=== PATIENT | female | born 1970 | race Hispanic/Latino ===

== ENCOUNTER 2017-07-08 21:53 | Emergency (ER) | payer MEDICAID ==
[~2017-07-08 21:53] MED LIST: CLON1TAB23 PO; DESM10SP4 NS; HYDR200T4 PO; LEVO125T11 PO
[2017-07-08] MEDS ORDERED: SODIUM CHLORIDE 0.9% 1000ML 1,000 ML IV ONE (22:31)
[2017-07-08] MEDS ORDERED: CEFTRIAXONE SODIUM 1 GM ONE (22:32)
[2017-07-08 22:42] LABS: BASOPHILS % (AUTO) 0.9 % (0.0-5.0); EOSINOPHILS % (AUTO) 1.6 % (0.0-8.0); LYMPHOCYTES % (AUTO) 23.9 % (21.0-51.0); MEAN CORPUSCULAR HEMOGLOBIN 26.2 pg (27.0-33.0); MEAN CORPUSCULAR HGB CONC 34.9 g/dL (32.0-36.0); MEAN CORPUSCULAR VOLUME 75.2 fL (79-99); MONOCYTES % (AUTO) 14.6 % (3.0-13.0); PLATELET COUNT (AUTO) 407 K/uL (130-400); RED BLOOD CELL COUNT(AUTO) 3.59 MIL/uL (4.00-5.50); RED CELL DISTRIBUTION WIDTH 16.5 % (11.0-15.5); WHITE BLOOD COUNT (AUTO) 3.3 K/uL (4.8-10.8)
[2017-07-08 22:50] LABS: CREATININE 0.5 mg/dL (0.5-1.5); POTASSIUM 4.7 mmol/L (3.5-5.1)
[2017-07-08] MEDS ORDERED: IPRATROPIUM/ALBUTEROL SULFATE 3 ML SOLUTION IH ONE (22:54)
== END 2017-07-08 23:34 | disposition home or self-care (01) ==
LOC: EDH 21:53
DX: J10.1 Influenza due to other identified influenza virus with other respiratory manifestations (principal); M54.2 Cervicalgia; R51 Headache; I10 Essential (primary) hypertension; M19.90 Unspecified osteoarthritis, unspecified site; Z88.8 Allergy status to other drugs, medicaments and biological substances
CPT/HCPCS: 36415; 70360; 71046; 80048; 84703; 85025; 87804 ×2; 93005; 94640; 96361; 96374; 99285; J0696; J7030

== ENCOUNTER 2017-11-19 15:25 | Emergency (ER) | payer MEDICAID ==
[2017-11-19 16:21] LABS: BASOPHILS % (AUTO) 1.3 % (0.0-5.0); EOSINOPHILS % (AUTO) 0.9 % (0.0-8.0); HEMATOCRIT 29.6 % (36-48); MEAN CORPUSCULAR HEMOGLOBIN 25.4 pg (27.0-33.0); MEAN CORPUSCULAR HGB CONC 34.2 g/dL (32.0-36.0); MEAN CORPUSCULAR VOLUME 74.3 fL (79-99); MONOCYTES % (AUTO) 11.8 % (3.0-13.0); PLATELET COUNT (AUTO) 375 K/uL (130-400); RED BLOOD CELL COUNT(AUTO) 3.99 MIL/uL (4.00-5.50); RED CELL DISTRIBUTION WIDTH 21.9 % (11.0-15.5); WHITE BLOOD COUNT (AUTO) 2.6 K/uL (4.8-10.8)
[2017-11-19 16:28] LABS: CREATININE 0.6 mg/dL (0.5-1.5); POTASSIUM 3.7 mmol/L (3.5-5.1)
[2017-11-19 16:32] LABS: ALBUMIN 3.9 g/dL (3.5-5.0); BILIRUBIN,DIRECT 0.1 mg/dL (0.0-0.3); BILIRUBIN,TOTAL 0.3 mg/dL (0.2-1.0); TOTAL PROTEIN, SERUM 7.9 g/dL (6.0-8.3)
[2017-11-19] MEDS ORDERED: ONDANSETRON HCL 4 MG/2 ML VIAL ONE (16:38)
[2017-11-19] MEDS ORDERED: SODIUM CHLORIDE 0.9% 1000ML 1,000 ML IV ONE (16:38)
[2017-11-19 17:52] LABS: APPEARANCE,URINE Clear (CLEAR); BILIRUBIN,URINE Negative (NEGATIVE); COLOR,URINE Yellow (YELLOW); GLUCOSE, URINE (UA) Negative (NEGATIVE); KETONES,URINE Negative (NEGATIVE); LEUKOCYTE ESTERASE ,URINE Negative (NEGATIVE); NITRATE,URINE Negative (NEGATIVE); OCCULT BLOOD,URINE Negative (NEGATIVE); PROTEIN,URINE Negative (NEGATIVE); UROBILINOGEN,URINE 0.2 mg/dL (0.2-1.0)
[2017-11-19 18:23] LABS: AMPHET/METH SCREEN,URINE NEGATIVE (NEGATIVE); BARBITURATE SCREEN, URINE NEGATIVE (NEGATIVE); BENZODIAZEPINES SCREEN,URINE NEGATIVE (NEGATIVE); CANNABINOID SCREEN,URINE POSITIVE (NEGATIVE); COCAINE SCREEN,URINE NEGATIVE (NEGATIVE); OPIATE SCREEN,URINE NEGATIVE (NEGATIVE); PHENCYCLIDINE SCREEN,URINE NEGATIVE (NEGATIVE)
[2017-11-19 18:50] LABS: BAND NEUTROPHILS % (MANUAL) 7 % (0-2); BASOPHILS % (MANUAL) 2 % (0-2); EOSINOPHILS % (MANUAL) 2 % (1-6); LYMPHOCYTES % (MANUAL) 25 % (22-44); MONOCYTES % (MANUAL) 6 % (2-9); SEGMENTED NEUTROPHILS % 58 % (40-70)
[2017-11-19 18:52] LABS: MAN.DIFF COMMENT-IMPRESSION MANUAL DIFFERENTIAL
[2017-11-19 18:54] LABS: PLATELET MORPHOLOGY COMMENT PLT CLUMPS
[2017-11-19] MEDS ORDERED: [UNRECOGNIZED DRUG - OTHER] IJ SCH (19:00)
[2017-11-19] MEDS ORDERED: DDAVP IJ SCH (19:00)
== END 2017-11-19 20:13 | disposition home or self-care (01) ==
LOC: EDH 15:25
DX: R42 Dizziness and giddiness (principal); R55 Syncope and collapse; R11.0 Nausea; I10 Essential (primary) hypertension; M19.90 Unspecified osteoarthritis, unspecified site; Z88.8 Allergy status to other drugs, medicaments and biological substances
CPT/HCPCS: 36415; 80048; 80076; 80305; 81003; 82550; 84484; 85025; 93005; 96361; 96365; 96375; 99285; J2405; J2597; J7030

== ENCOUNTER 2017-11-21 09:44 | Emergency (ER) | payer MEDICAID ==
[2017-11-21 10:16] LABS: BASOPHILS % (AUTO) 1.5 % (0.0-5.0); EOSINOPHILS % (AUTO) 1.1 % (0.0-8.0); HEMATOCRIT 30.1 % (36-48); LYMPHOCYTES % (AUTO) 25.9 % (21.0-51.0); MEAN CORPUSCULAR HEMOGLOBIN 25.8 pg (27.0-33.0); MEAN CORPUSCULAR HGB CONC 34.1 g/dL (32.0-36.0); MEAN CORPUSCULAR VOLUME 75.8 fL (79-99); MONOCYTES % (AUTO) 14.2 % (3.0-13.0); NEUTROPHILS % (AUTO) 57.3 % (40.0-77.0); PLATELET COUNT (AUTO) 388 K/uL (130-400); RED BLOOD CELL COUNT(AUTO) 3.98 MIL/uL (4.00-5.50); RED CELL DISTRIBUTION WIDTH 26.8 % (11.0-15.5); WHITE BLOOD COUNT (AUTO) 2.7 K/uL (4.8-10.8)
[2017-11-21 10:26] LABS: CREATININE 0.7 mg/dL (0.5-1.5); POTASSIUM 3.7 mmol/L (3.5-5.1)
[2017-11-21 10:31] LABS: ALBUMIN 3.6 g/dL (3.5-5.0); BILIRUBIN,TOTAL 0.3 mg/dL (0.2-1.0); TOTAL PROTEIN, SERUM 7.7 g/dL (6.0-8.3)
[2017-11-21 10:57] LABS: BAND NEUTROPHILS % (MANUAL) 1 % (0-2); BASOPHILS % (MANUAL) 2 % (0-2); EOSINOPHILS % (MANUAL) 1 % (1-6); LYMPHOCYTES % (MANUAL) 22 % (22-44); MAN.DIFF COMMENT-IMPRESSION MANUAL DIFFERENTIAL; MONOCYTES % (MANUAL) 8 % (2-9); SEGMENTED NEUTROPHILS % 66 % (40-70)
[2017-11-21 10:58] LABS: PLATELET MORPHOLOGY COMMENT ADEQUATE
== END 2017-11-21 12:58 | disposition home or self-care (01) ==
LOC: EDH 09:44
DX: D72.819 Decreased white blood cell count, unspecified (principal); M19.90 Unspecified osteoarthritis, unspecified site; I10 Essential (primary) hypertension; Z88.8 Allergy status to other drugs, medicaments and biological substances
CPT/HCPCS: 36415; 80053; 84484; 85025; 86850; 86900; 86901; 93005

== ENCOUNTER 2022-05-02 10:17 | Observation (INO) | payer MEDICAID ==
[~2022-05-02] VITALS: Ht 165.1 cm; Wt 91.6 kg
[~2022-05-02 10:17] MED LIST changes: +BACL10TA PO; +BUSP10TA3 PO; -CLON1TAB23 PO; -HYDR200T4 PO; +LISI10TA24 PO; +NAPR-1023 PO
[2022-05-02 10:54] LABS: BASOPHILS % (AUTO) 0.5 % (0.0-5.0); EOSINOPHILS % (AUTO) 2.2 % (0.0-8.0); HEMATOCRIT 39.6 % (36-48); LYMPHOCYTES % (AUTO) 33.2 % (21.0-51.0); MEAN CORPUSCULAR HEMOGLOBIN 27.2 pg (27.0-33.0); MEAN CORPUSCULAR HGB CONC 32.3 g/dL (32.0-36.0); MEAN CORPUSCULAR VOLUME 84.1 fL (79-99); MONOCYTES % (AUTO) 6.7 % (3.0-13.0); NEUTROPHILS % (AUTO) 57.1 % (40.0-77.0); PLATELET COUNT (AUTO) 253 K/uL (130-400); RED BLOOD CELL COUNT(AUTO) 4.71 MIL/uL (4.00-5.50); RED CELL DISTRIBUTION WIDTH 15.7 % (11.0-15.5); WHITE BLOOD COUNT (AUTO) 3.7 K/uL (4.8-10.8)
[2022-05-02] MEDS ORDERED: GADOTERATE MEGLUMINE 10 MMOL/20 ML VIAL IV ONE (11:20)
[2022-05-02 11:25] LABS: ALBUMIN 3.9 g/dL (3.5-5.0); CREATININE 0.9 mg/dL (0.5-1.5); POTASSIUM 3.6 mmol/L (3.5-5.1); TOTAL PROTEIN, SERUM 9.7 g/dL (6.0-8.3)
[2022-05-02 11:32] LABS: B-TYPE NATRIURETIC PEPTIDE 7 pg/mL (0-100)
[2022-05-02 11:53] LABS: INR 0.94 (0.85-1.15); PROTHROMBIN TIME 10.3 SEC (9.6-11.6)
[2022-05-02 11:55] LABS: PARTIAL THROMBOPLASTIN TIME 33.3 SEC (26.3-35.5)
[2022-05-02 12:12] LABS: APPEARANCE,URINE CLEAR (CLEAR); BILIRUBIN,URINE NEGATIVE (NEGATIVE); COLOR,URINE COLORLESS (YELLOW); GLUCOSE, URINE (UA) NEGATIVE (NEGATIVE); KETONES,URINE NEGATIVE (NEGATIVE); LEUKOCYTE ESTERASE ,URINE NEGATIVE Leu/uL (NEGATIVE); NITRATE,URINE NEGATIVE (NEGATIVE); OCCULT BLOOD,URINE NEGATIVE (NEGATIVE); PH,URINE 5.5 (5.0-8.0); PROTEIN,URINE NEGATIVE (NEGATIVE); UROBILINOGEN,URINE 0.2 mg/dL (0.2-1.0)
[2022-05-02] MEDS ORDERED: DEXTROSE 5 %-0.45 % NACL 1,000 ML IV SCH (16:00)
[2022-05-02 16:13] VITALS: BP 147/92
== END 2022-05-02 17:26 | disposition home or self-care (01) ==
LOC: EDH 10:17 → EDHIP 10:18
PROVIDERS: ADMIT Internal Medicine; ATTEND Internal Medicine
DX: D32.9 Benign neoplasm of meninges, unspecified (principal); H54.62 Unqualified visual loss, left eye, normal vision right eye; I10 Essential (primary) hypertension; E11.9 Type 2 diabetes mellitus without complications; I25.2 Old myocardial infarction; D32.0 Benign neoplasm of cerebral meninges; G51.0 Bell's palsy; H49.00 Third [oculomotor] nerve palsy, unspecified eye; H49.20 Sixth [abducent] nerve palsy, unspecified eye; H51.0 Palsy (spasm) of conjugate gaze; H51.8 Other specified disorders of binocular movement; Z86.73 Personal history of transient ischemic attack (TIA), and cerebral infarction without residual deficits; Z90.49 Acquired absence of other specified parts of digestive tract; Z79.899 Other long term (current) drug therapy; Z98.890 Other specified postprocedural states
CPT/HCPCS: 96360; 99285; 82550; 83721; 84484; 80053; 83880; 85025; 85610; 85730; 82948; 81003; 36415; 71045; 70450; 70553; 70543; 93005; G0378 ×2; A9575

== ENCOUNTER 2022-09-01 15:04 | Emergency (ER) | payer MEDICAID ==
[~2022-09-01] VITALS: Ht 165.1 cm; Wt 91.6 kg
[2022-09-01 17:35] LABS: BASOPHILS % (AUTO) 0.5 % (0.0-5.0); EOSINOPHILS % (AUTO) 1.7 % (0.0-8.0); HEMATOCRIT 32.8 % (36-48); LYMPHOCYTES % (AUTO) 28.1 % (21.0-51.0); MEAN CORPUSCULAR HEMOGLOBIN 24.5 pg (27.0-33.0); MEAN CORPUSCULAR HGB CONC 31.4 g/dL (32.0-36.0); MEAN CORPUSCULAR VOLUME 78.1 fL (79-99); MONOCYTES % (AUTO) 6.5 % (3.0-13.0); PLATELET COUNT (AUTO) 369 K/uL (130-400); RED CELL DISTRIBUTION WIDTH 16.6 % (11.0-15.5); WHITE BLOOD COUNT (AUTO) 4.1 K/uL (4.8-10.8)
[2022-09-01 17:42] LABS: CREATININE 0.8 mg/dL (0.5-1.5); POTASSIUM 3.6 mmol/L (3.5-5.1)
[2022-09-01 17:44] LABS: INR 1.09 (0.85-1.15); PROTHROMBIN TIME 11.8 SEC (9.6-11.6)
[2022-09-01 17:45] LABS: PARTIAL THROMBOPLASTIN TIME 49.5 SEC (26.3-35.5)
[2022-09-01 17:47] LABS: ALBUMIN 3.4 g/dL (3.5-5.0); TOTAL PROTEIN, SERUM 8.3 g/dL (6.0-8.3)
[2022-09-01] MEDS ORDERED: ACETAMINOPHEN 500 MG TABLET PO ONE (18:30)
[2022-09-01] MEDS ORDERED: ACETAMINOPHEN 500 MG TABLET ONE (18:32)
[2022-09-01 19:43] VITALS: BP 149/89
== END 2022-09-01 21:51 | disposition home or self-care (01) ==
LOC: EDH 15:04
DX: M17.0 Bilateral primary osteoarthritis of knee (principal); R60.0 Localized edema; M79.604 Pain in right leg; I10 Essential (primary) hypertension; M79.7 Fibromyalgia; F17.200 Nicotine dependence, unspecified, uncomplicated; Z79.899 Other long term (current) drug therapy; Z86.718 Personal history of other venous thrombosis and embolism; Z90.49 Acquired absence of other specified parts of digestive tract; Z98.890 Other specified postprocedural states
CPT/HCPCS: 36415; 73562; 80053; 85025; 85610; 85730; 93970

== ENCOUNTER 2022-10-11 01:05 | Emergency (ER) | payer MEDICAID ==
[~2022-10-11] VITALS: Ht 165.1 cm; Wt 95.3 kg
[2022-10-11 03:12] VITALS: BP 135/87
== END 2022-10-11 03:13 | disposition home or self-care (01) ==
LOC: EDH 01:05
DX: D32.9 Benign neoplasm of meninges, unspecified (principal); H53.2 Diplopia; I10 Essential (primary) hypertension; M79.7 Fibromyalgia; M19.90 Unspecified osteoarthritis, unspecified site; Z88.8 Allergy status to other drugs, medicaments and biological substances; Z79.899 Other long term (current) drug therapy
CPT/HCPCS: 70450

== ENCOUNTER 2022-12-30 12:47 | Inpatient (IN) | payer MEDICAID ==
[~2022-12-30] VITALS: Ht 165.1 cm; Wt 95.4 kg
[2022-12-30 14:04] LABS: HEMATOCRIT 27.9 % (36-48); MEAN CORPUSCULAR HEMOGLOBIN 21.6 pg (27.0-33.0); MEAN CORPUSCULAR HGB CONC 29.7 g/dL (32.0-36.0); MEAN CORPUSCULAR VOLUME 72.7 fL (79-99); PLATELET COUNT (AUTO) 296 K/uL (130-400); RED BLOOD CELL COUNT(AUTO) 3.84 MIL/uL (4.00-5.50); RED CELL DISTRIBUTION WIDTH 18.2 % (11.0-15.5); WHITE BLOOD COUNT (AUTO) 5.6 K/uL (4.8-10.8)
[2022-12-30 14:07] LABS: CREATININE 0.7 mg/dL (0.5-1.5); POTASSIUM 3.8 mmol/L (3.5-5.1)
[2022-12-30 14:12] LABS: TOTAL PROTEIN, SERUM 7.9 g/dL (6.0-8.3)
[2022-12-30 14:35] LABS: BASOPHILS % (AUTO) 0.3 % (0.0-5.0); EOSINOPHILS % (AUTO) 0.5 % (0.0-8.0); LYMPHOCYTES % (AUTO) 10.6 % (21.0-51.0); MONOCYTES % (AUTO) 3.1 % (3.0-13.0)
[2022-12-30] MEDS ORDERED: IOHEXOL-350 75 ML VIAL IV ONE (15:19)
[2022-12-30 16:37] LABS: APPEARANCE,URINE CLEAR (CLEAR); BILIRUBIN,URINE NEGATIVE (NEGATIVE); COLOR,URINE LIGHT-YELLOW (YELLOW); GLUCOSE, URINE (UA) NEGATIVE (NEGATIVE); KETONES,URINE NEGATIVE (NEGATIVE); LEUKOCYTE ESTERASE ,URINE NEGATIVE Leu/uL (NEGATIVE); NITRATE,URINE NEGATIVE (NEGATIVE); OCCULT BLOOD,URINE NEGATIVE (NEGATIVE); PH,URINE 6.5 (5.0-8.0); PROTEIN,URINE NEGATIVE (NEGATIVE); UROBILINOGEN,URINE 0.2 mg/dL (0.2-1.0)
[2022-12-30 16:45] LABS: BACTERIA,URINE RARE /HPF (None Seen); MUCUS,URINE RARE LPF (None Seen); RBC,URINE 0-1 /HPF (0-1); SQUAMOUS EPITHELIAL CELL,UR MOD /HPF (0-2)
[2022-12-30] MEDS ORDERED: CEFU500T67 PO (17:01)
[2022-12-30] MEDS ORDERED: GABA300C PO (17:01)
[2022-12-30] MEDS ORDERED: FOLI0.4T6 PO (17:01)
[2022-12-30] MEDS ORDERED: PRED20TA3 PO (17:01)
[2022-12-30] MEDS ORDERED: APIX5TAB PO (17:01)
[2022-12-30] MEDS ORDERED: OMEP40CA21 PO (17:01)
[2022-12-30] MEDS ORDERED: LEVO125T95 PO (17:01)
[2022-12-30] MEDS ORDERED: GUAI120L62 PO (17:01)
[2022-12-30] MEDS ORDERED: METO-408 PO (17:01)
[2022-12-30 19:04] VITALS: BP 119/73
[2022-12-30] MEDS: ENOXAPARIN SODIUM 100 MG/1 ML SQ SCH (21:00)
[2022-12-30] MEDS ORDERED: ALPR1TAB2 PO (21:05)
[2022-12-30] MEDS ORDERED: ALPRAZOLAM 1 MG TAB ONE (22:22)
[2022-12-30 23:09] VITALS: BP 123/71
[2022-12-31 04:00] VITALS: BP 139/90
[2022-12-31 05:31] LABS: HEMATOCRIT 28.1 % (36-48); MEAN CORPUSCULAR HEMOGLOBIN 21.6 pg (27.0-33.0); MEAN CORPUSCULAR HGB CONC 29.2 g/dL (32.0-36.0); MEAN CORPUSCULAR VOLUME 73.9 fL (79-99); RED BLOOD CELL COUNT(AUTO) 3.8 MIL/uL (4.00-5.50); RED CELL DISTRIBUTION WIDTH 18.5 % (11.0-15.5); WHITE BLOOD COUNT (AUTO) 4.7 K/uL (4.8-10.8)
[2022-12-31 06:04] LABS: CREATININE 0.6 mg/dL (0.5-1.5); POTASSIUM 3.7 mmol/L (3.5-5.1)
[2022-12-31] MEDS: LEVOTHYROXINE 125 MCG TABLET PO SCH (06:41)
[2022-12-31] MEDS: PANTOPRAZOLE 40 MG TAB DR PO SCH (06:41)
[2022-12-31 07:58] VITALS: BP 143/92
[2022-12-31] MEDS: LISINOPRIL 10 MG TABLET PO SCH (09:53)
[2022-12-31] MEDS: FOLIC ACID 1 MG TABLET PO SCH (09:53)
[2022-12-31] MEDS: GABAPENTIN 300 MG CAPSULE PO SCH ×2 (09:53→20:48)
[2022-12-31] MEDS: METOPROLOL SUCCINATE 25 MG TAB.SR.24H PO SCH (09:54)
[2022-12-31] MEDS: ENOXAPARIN SODIUM 100 MG/1 ML SQ SCH ×2 (09:55→20:48)
[2022-12-31] MEDS: ALPRAZOLAM 1 MG TAB PO SCH ×2 (10:24→20:48)
[2022-12-31 11:40] VITALS: BP 100/66
[2022-12-31 16:00] VITALS: BP 107/66
[2022-12-31 19:35] VITALS: BP 105/59
[2022-12-31] MEDS ORDERED: ALPRAZOLAM 1 MG TAB PO SCH (21:00)
[2022-12-31 23:31] VITALS: BP 98/64
[2023-01-01] VITALS (7 sets, daily range): BP systolic 96–121; BP diastolic 61–71
[2023-01-01] MEDS ORDERED: ACETAMINOPHEN 325 MG TAB ONE (04:25)
[2023-01-01] MEDS ORDERED: ACETAMINOPHEN 325 MG TAB PO PRN (04:30)
[2023-01-01] MEDS: LEVOTHYROXINE 125 MCG TABLET PO SCH (05:21)
[2023-01-01] MEDS: PANTOPRAZOLE 40 MG TAB DR PO SCH (05:22)
[2023-01-01 06:18] LABS: HEMATOCRIT 29.7 % (36-48); MEAN CORPUSCULAR HEMOGLOBIN 21.3 pg (27.0-33.0); MEAN CORPUSCULAR HGB CONC 28.6 g/dL (32.0-36.0); MEAN CORPUSCULAR VOLUME 74.3 fL (79-99); RED CELL DISTRIBUTION WIDTH 18.3 % (11.0-15.5)
[2023-01-01 06:33] LABS: ALBUMIN 2.9 g/dL (3.5-5.0); CREATININE 0.7 mg/dL (0.5-1.5); POTASSIUM 4.1 mmol/L (3.5-5.1); TOTAL PROTEIN, SERUM 7.4 g/dL (6.0-8.3)
[2023-01-01] MEDS: ENOXAPARIN SODIUM 100 MG/1 ML SQ SCH ×2 (08:52→20:46)
[2023-01-01] MEDS: METOPROLOL SUCCINATE 25 MG TAB.SR.24H PO SCH (08:52)
[2023-01-01] MEDS: GABAPENTIN 300 MG CAPSULE PO SCH ×2 (08:52→20:46)
[2023-01-01] MEDS: ALPRAZOLAM 1 MG TAB PO SCH ×2 (08:52→20:45)
[2023-01-01] MEDS: FOLIC ACID 1 MG TABLET PO SCH (08:52)
[2023-01-01] MEDS: LISINOPRIL 10 MG TABLET PO SCH ×2 (08:53→09:00)
[2023-01-02 03:50] VITALS: BP 92/56
[2023-01-02] MEDS: PANTOPRAZOLE 40 MG TAB DR PO SCH (05:46)
[2023-01-02] MEDS: LEVOTHYROXINE 125 MCG TABLET PO SCH (05:46)
[2023-01-02] MEDS ORDERED: IRON SUCROSE COMPLEX 100 MG/5 ML VIAL IVP ONE ×2 (06:30→08:00)
[2023-01-02 08:00] VITALS: BP 114/74
[2023-01-02] MEDS: LISINOPRIL 10 MG TABLET PO SCH (08:41)
[2023-01-02] MEDS: METOPROLOL SUCCINATE 25 MG TAB.SR.24H PO SCH (08:41)
[2023-01-02] MEDS: ENOXAPARIN SODIUM 100 MG/1 ML SQ SCH (08:42)
[2023-01-02] MEDS: GABAPENTIN 300 MG CAPSULE PO SCH (08:42)
[2023-01-02] MEDS: ALPRAZOLAM 1 MG TAB PO SCH (08:42)
[2023-01-02] MEDS: FOLIC ACID 1 MG TABLET PO SCH (08:42)
[2023-01-02] MEDS ORDERED: PHARMACY COMMUNICATION MISC SCH (09:00)
[2023-01-02 11:43] VITALS: BP 105/72
== END 2023-01-02 14:10 | disposition home or self-care (01) | DRG 134 ==
LOC: EDH 12:47 → EDHIP 12:48 → 4CH 18:40
PROVIDERS: ADMIT Internal Medicine; ATTEND Internal Medicine
DX: I26.99 Other pulmonary embolism without acute cor pulmonale (principal); E03.9 Hypothyroidism, unspecified; M79.7 Fibromyalgia; I10 Essential (primary) hypertension; J44.9 Chronic obstructive pulmonary disease, unspecified; M35.00 Sjogren syndrome, unspecified; F41.9 Anxiety disorder, unspecified; F32.A Depression, unspecified; Z86.718 Personal history of other venous thrombosis and embolism
CPT/HCPCS: 36415; 71045; 71270; 80048; 80053; 81001; 82550; 83874; 84484; 85025; 85027; 85378; G0378; J1650; J1756; Q9967

== ENCOUNTER 2023-12-08 23:02 | Emergency (ER) | payer MEDICAID ==
[~2023-12-08] VITALS: Ht 165.1 cm; Wt 95.3 kg
[~2023-12-08 23:02] MED LIST changes: +ALPR1TAB2 PO; +APIX5TAB PO; -BACL10TA PO; -BUSP10TA3 PO; -DESM10SP4 NS; +FOLI0.4T6 PO; +GABA300C PO; -LEVO125T11 PO; +LEVO125T95 PO; +METO-408 PO; -NAPR-1023 PO; +OMEP40CA21 PO
[2023-12-08 23:31] LABS: BASOPHILS # (AUTO) 0.02 K/uL (0.00-0.20); BASOPHILS % (AUTO) 0.5 % (0.0-5.0); EOSINOPHILS # (AUTO) 0.04 K/uL (0.00-0.70); EOSINOPHILS % (AUTO) 0.9 % (0.0-8.0); HEMATOCRIT 36.5 % (36-48); IMMATURE GRANULOCYTE ABSOLUTE 0.02 K/uL (0-1); LYMPHOCYTES # (AUTO) 1.2 K/uL (1.0-4.8); LYMPHOCYTES % (AUTO) 27.2 % (21.0-51.0); MEAN CORPUSCULAR HGB CONC 32.3 g/dL (32.0-36.0); MEAN CORPUSCULAR VOLUME 86.7 fL (79-99); MONOCYTES # (AUTO) 0.2 K/uL (0.1-1.0); MONOCYTES % (AUTO) 5.2 % (3.0-13.0); NEUTROPHILS # (AUTO) 2.8 K/uL (1.8-7.7); NEUTROPHILS % (AUTO) 65.7 % (40.0-77.0); PLATELET COUNT (AUTO) 263 K/uL (130-400); RED BLOOD CELL COUNT(AUTO) 4.21 MIL/uL (4.00-5.50); RED CELL DISTRIBUTION WIDTH 14.7 % (11.0-15.5); WHITE BLOOD COUNT (AUTO) 4.3 K/uL (4.8-10.8)
[2023-12-08 23:40] LABS: CREATININE 0.9 mg/dL (0.5-1.0); POTASSIUM 4.2 mmol/L (3.5-5.1)
[2023-12-08 23:45] LABS: ALBUMIN 3.6 g/dL (3.5-5.0); BILIRUBIN,TOTAL 0.2 mg/dL (0.2-1.0); TOTAL PROTEIN, SERUM 8.5 g/dL (6.0-8.3)
[2023-12-08 23:56] LABS: B-TYPE NATRIURETIC PEPTIDE < 5 pg/mL (0-100)
[2023-12-09] MEDS: MORPHINE 2 MG SYG IVP ONE (00:46)
[2023-12-09] MEDS: PANTOPRAZOLE 40 MG/VIAL IVP ONE (01:14)
[2023-12-09] MEDS: ONDANSETRON 4MG INJ IVP ONE (01:14)
[2023-12-09] MEDS: 0.9% NACL 500ML IV.SOLN 500 ML IV ONE (01:14)
[2023-12-09 03:29] VITALS: BP 136/80; PULSE 82; RESP 16; O2SAT 98
== END 2023-12-09 03:32 | disposition home or self-care (01) ==
LOC: EDH 23:02
DX: R13.10 Dysphagia, unspecified (principal); K21.9 Gastro-esophageal reflux disease without esophagitis; K44.9 Diaphragmatic hernia without obstruction or gangrene; K29.00 Acute gastritis without bleeding; R11.2 Nausea with vomiting, unspecified; R19.7 Diarrhea, unspecified; I10 Essential (primary) hypertension; M79.7 Fibromyalgia; E03.9 Hypothyroidism, unspecified; F41.9 Anxiety disorder, unspecified; Z88.8 Allergy status to other drugs, medicaments and biological substances; Z79.899 Other long term (current) drug therapy
CPT/HCPCS: 99285; 71045; 84484 ×2; 80053; 83880; 83690; 85025; 36415 ×2; 93005; 96374; 96375; 96361; 74018; J7040; J2270; J2405; S0164; C9113

== ENCOUNTER 2024-06-22 13:28 | Inpatient (IN) | payer MEDICAID ==
[~2024-06-22] VITALS: Ht 165.1 cm; Wt 94.0 kg
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
[2024-06-22 14:16] LABS: BASOPHILS # (AUTO) 0.02 K/uL (0.00-0.20); BASOPHILS % (AUTO) 0.7 % (0.0-5.0); EOSINOPHILS # (AUTO) 0.07 K/uL (0.00-0.70); EOSINOPHILS % (AUTO) 2.5 % (0.0-8.0); IMMATURE GRANULOCYTE ABSOLUTE 0.01 K/uL (0-1); LYMPHOCYTES # (AUTO) 1.1 K/uL (1.0-4.8); LYMPHOCYTES % (AUTO) 38.3 % (21.0-51.0); MEAN CORPUSCULAR HEMOGLOBIN 27.4 pg (27.0-33.0); MEAN CORPUSCULAR HGB CONC 32.8 g/dL (32.0-36.0); MEAN CORPUSCULAR VOLUME 83.5 fL (79-99); MONOCYTES # (AUTO) 0.2 K/uL (0.1-1.0); MONOCYTES % (AUTO) 6.7 % (3.0-13.0); NEUTROPHILS # (AUTO) 1.5 K/uL (1.8-7.7); NEUTROPHILS % (AUTO) 51.4 % (40.0-77.0); PLATELET COUNT (AUTO) 262 K/uL (130-400); RED BLOOD CELL COUNT(AUTO) 4.67 MIL/uL (4.00-5.50); RED CELL DISTRIBUTION WIDTH 19.9 % (11.0-15.5); WHITE BLOOD COUNT (AUTO) 2.8 K/uL (4.8-10.8)
--- NOTE | 2024-06-22 14:22 | EKG ---
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
--- NOTE | 2024-06-22 14:23 | HMCIMG ---
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 Again, there is a stable left frontal heavily calcified meningioma, unchanged since the examination of October 11, 2022. The examination is otherwise unremarkable. Ramey-white matter junction is preserved. No intra or extra axial lesions or fluid collections are seen. Specifically, ramey and white matter are otherwise normal in signal characteristics with normal caliber of ventricles and periventricular cisterns with no evidence of intra or or extra-axial hemorrhage, acute lacunar infarct, or major acute territorial infarct, mass, or other abnormality. Periventricular white matter locations are preserved. The orbital contents and structures of the posterior fossa are intact. Impression: Chronic changes. This study was performed using dose reduction techniques to include automated exposure control and/or adjustment of the mA and/or kV according to patient size.
[2024-06-22 14:31] LABS: CREATININE 0.9 mg/dL (0.5-1.0); POTASSIUM 3.6 mmol/L (3.5-5.1)
[2024-06-22 14:43] LABS: APPEARANCE,URINE CLEAR (CLEAR); BILIRUBIN,URINE NEGATIVE (NEGATIVE); COLOR,URINE LIGHT-YELLOW (YELLOW); GLUCOSE, URINE (UA) NEGATIVE (NEGATIVE); KETONES,URINE NEGATIVE (NEGATIVE); LEUKOCYTE ESTERASE ,URINE NEGATIVE Leu/uL (NEGATIVE); NITRATE,URINE NEGATIVE (NEGATIVE); OCCULT BLOOD,URINE NEGATIVE (NEGATIVE); PROTEIN,URINE NEGATIVE (NEGATIVE); UROBILINOGEN,URINE 0.2 mg/dL (0.2-1.0)
[2024-06-22 14:47] LABS: ADD UA MICROSCOPIC NO
--- NOTE | 2024-06-22 14:48 | HMCIMG ---
Exam Type: CHEST 1VW Clinical Information: left face and arm numbness Comparison: None Findings: The lungs are clear. The heart is normal in size. There is tortuosity of the aorta which artifactually enlarges the mediastinum. No actual mediastinal pathology is detected. IMPRESSION: Tortuous aorta. Clear lungs.
[2024-06-22 15:22] LABS: BASOPHILS % (MANUAL) 2 % (0-2); EOSINOPHILS % (MANUAL) 2 % (1-6); LYMPHOCYTES % (MANUAL) 34 % (22-44); MONOCYTES % (MANUAL) 5 % (2-9); REACTIVE LYMPHOCYTES 7 % (0-0); SEGMENTED NEUTROPHILS % 50 % (40-70); TOTAL CELLS COUNTED 100
[2024-06-22 15:23] LABS: MAN.DIFF COMMENT-IMPRESSION MANUAL DIFFERENTIAL; PLATELET MORPHOLOGY COMMENT ADEQUATE
--- NOTE | 2024-06-22 15:30 | HMCIMG ---
Exam Type: CT ANGIO HEAD AND NECK Clinical Information: left numbess visual field cut Comparison: None CT Dose Index (CTDI): 5.06 mGy Dose Length Product (DLP): 200.8 total mGy PROTOCOL: Examination is done at 5 millimeter multiple axial slices after IV contrast administration, 100 cc Isovue-370 IV with arterial dynamic scanning. Examination is photographed in the axial and coronal planes. In addition, surface-rendered three-dimensional reconstructions of the [place] are performed. No complications occurred after contrast administration. Findings: The vessels of the [place] are patent. There is no aneurysm. There is no arteriovenous malformation. There are no occlusions. No tumor blush is identified. The carotid system is preserved bilaterally without significant atheromatous disease. There is no aneurysm. There is no occlusion. There is no dissection. The examination of the cervical spine shows no fractures, dislocations, or significant abnormalities. The examination on the neck is unremarkable otherwise. No lymphadenopathy seen. There are no masses. There are no fluid collections. The fat planes are preserved. The parotid glands are intact. Again, left frontal calcified meningioma is seen, unchanged since earlier exam. Impression: Normal exam of the brain with contrast and CT-Angiogram of the [place]. Normal neck exam. No carotid occlusions.
[2024-06-22] MEDS ORDERED: GADOTERATE MEGLUMINE 10 MMOL/20 ML VIAL IV ONE (15:50)
[2024-06-22] MEDS: 1/2 NS 1000ML 1,000 ML IV SCH (15:57)
[2024-06-22] MEDS: acetaMINOPHEN 500 MG TABLET PO PRN (15:57)
[2024-06-22] MEDS ORDERED: hydroMORPHone 0.5 MG SYG (0.5MG/0.5ML) IVP PRN (16:00)
[2024-06-22] MEDS: hydrALAZine 25MG TABLET PO PRN (16:26)
[2024-06-22] MEDS: ASPIRIN 325MG TAB ONE (16:26)
--- NOTE | 2024-06-22 16:30 | NUR ---
PT TO BE TRANSFERED TO ROOM 332 NURSE ON FLOOR TO CALL BACK FOR REPORT CURRENTLY [place]INT NURSE TO SPEAK WITH PRECEPT PRIOR TO TRANSFER PROVIDED EXT FOR CALL BACK
--- NOTE | 2024-06-22 16:50 | HMCIMG ---
MR BRAIN WWO CON HISTORY: TIA TECHNIQUE: MR BRAIN WWO CON. Multiplanar multisequence MRI was performed. 15ml of Clariscan contrast was used. FINDINGS: Multiple areas of abnormal restricted diffusion is seen in the right occipital lobe and medial right temporal lobe consistent with areas of infarct, the largest measuring 1.9 cm in the right occipital lobe. Area of less pronounced restricted diffusion seen in the medial right temporal lobe and inferior right occipital lobe suggesting acute/subacute infarct. 2.0 x 2.9 cm enhancing solid subdural based mass in the left frontal lobe suggesting meningioma, stable. Correlate clinically. Mild atrophy and scattered nonspecific white matter changes are seen. Enhancing heterogeneous mass seen in the right sphenoid sinus/base of the skull measuring 2.5 x 2.1 cm, incompletely characterized. Correlate clinically. The visualized paranasal sinuses and mastoid air cells are normally aerated. IMPRESSION: 1. Multiple areas of abnormal restricted diffusion seen in the right occipital lobe and medial right temporal lobe consistent with areas of infarct, the largest measuring 1.9 cm in the right occipital lobe. Area of less pronounced restricted diffusion seen in the medial right temporal lobe and inferior right occipital lobe suggesting acute/subacute infarct. 2. Stable left frontal meningioma. . 3. Enhancing heterogeneous mass seen in the right sphenoid sinus/base of the skull measuring 2.5 x 2.1 cm, incompletely characterized. Correlate clinically.
[2024-06-22 17:00] VITALS: BP 141/95; PULSE 102; RESP 18; TEMP 98.1; O2SAT 100
--- NOTE | 2024-06-22 17:00 | NUR ---
*PATIENT PASSED BEDSIDE SWALLOW TEST*
[2024-06-22 20:00] VITALS: O2SAT 94
[2024-06-22] MEDS: APIXaban 5 MG TABLET PO SCH (20:43)
[2024-06-22 20:50] VITALS: BP 131/73; PULSE 103; RESP 18; TEMP 98.2
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
[2024-06-22 23:33] VITALS: BP 106/68; PULSE 107; RESP 18; TEMP 98.5
[2024-06-23 04:03] VITALS: BP 129/88; PULSE 71; RESP 18; TEMP 98.4
[2024-06-23 05:29] LABS: HEMATOCRIT 39.6 % (36-48); MEAN CORPUSCULAR HEMOGLOBIN 27.2 pg (27.0-33.0); MEAN CORPUSCULAR HGB CONC 31.8 g/dL (32.0-36.0); MEAN CORPUSCULAR VOLUME 85.3 fL (79-99); RED BLOOD CELL COUNT(AUTO) 4.64 MIL/uL (4.00-5.50); RED CELL DISTRIBUTION WIDTH 20.1 % (11.0-15.5); WHITE BLOOD COUNT (AUTO) 3.2 K/uL (4.8-10.8)
[2024-06-23 06:00] LABS: ALBUMIN 3.2 g/dL (3.5-5.0); BILIRUBIN,TOTAL 0.3 mg/dL (0.2-1.0); CREATININE 0.7 mg/dL (0.5-1.0); POTASSIUM 3.6 mmol/L (3.5-5.1); TOTAL PROTEIN, SERUM 7.8 g/dL (6.0-8.3)
[2024-06-23] MEDS: levoTHYROxine 125 MCG TABLET PO SCH (06:33)
[2024-06-23 08:00] VITALS: BP 119/86; PULSE 95; RESP 18; TEMP 98.2
[2024-06-23] MEDS: ASPIRIN 325MG TAB PO SCH (10:37)
[2024-06-23] MEDS: FOLic ACID 1 MG TABLET PO SCH (10:37)
[2024-06-23 12:00] VITALS: BP 133/90; PULSE 83; RESP 18; TEMP 97.9
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
[2024-06-23 14:30] LABS: HEMOGLOBIN A1C 5.5 % (4.0-6.0)
--- NOTE | 2024-06-23 14:45 | NUR ---
Order received and patient seen and evaluated. Patient noted with symmetrical strength grossly intact. Patient also noted with left lateral visual field impaired affecting safety with her ambulation as she cannot see obstacles to left lateral peripheral field. Recommend OPPT upon discharge to address these deficiencies. PT team to follow. Addendum: 06/23/24 at 1520 by MARYSOL FUNES PT Amended: Links added.
[2024-06-23 16:00] VITALS: BP 146/89; PULSE 86; RESP 17; TEMP 98
--- NOTE | 2024-06-23 16:16 | EKG ---
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
--- NOTE | 2024-06-23 16:55 | HMCSR ---
APPROVED REPORT EXAM: Two-dimensional and M-mode echocardiogram with Doppler and color Doppler. INDICATION ICD: stroke CVA/TIA: 2D Dimensions RVDd4.0 cmLVEF(%)71.1 (>50%)LVED Vol(simp.)100.0 mL IVSd1.1 (0.7-1.1cm)FS(%)40 %LVES Vol(simp.)35.9 mL LVDd4.0 (3.8-5.6cm)LA (2D)2.2 (1.6-4.0cm)LVEF(%, simp.)64 % PWd1.3 (0.7-1.1cm)Ao Root(2D)3.6 (2.0-3.7cm)LA ESV INDEX (4CH)33.30 mL/m2 IVSs1.6 cmLVOT diam2.2 (1.8-2.4cm)LA ESV INDEX (2CH)36.90 mL/m2 LVDs2.4 (2.5-4.0cm)IVC diam2.1 cmLA ESV INDEX (BP)36.10 mL/m2 PWs1.6 cm M-Mode Dimensions EPSS0.7 cm LA (MM)2.4 (1.6-4.0cm) Ao Root(MM)3.7 (2.0-3.7cm) Aortic Valve AoV VTI0.5 mAo Mean GR14.0 mmHgLVOT VTI0.20 m VILMA (VMAX)1.6 cm2AVA (VTI) 1.6 cm2 Mitral Valve MV E Vmax80.0 cm/sDECEL [id number] ms MV A Vmax66.9 cm/sP 1/2 T84 ms E/A ratio1.2MVA (PHT)2.6 cm2 TDI E/E' Xasvbq22.1E/E' Wtybfoc46.7 Medial E' Peak V6.10 cm/sLateral E' Peak V6.30 cm/s Pulmonary Valve PI End Estrellita. Chap[place] 167.0 cm/s Left Ventricle The left ventricle structure and function is normal. There is normal LV segmental wall motion. There is normal left ventricular wall thickness. LVEF is 60-65%. The left ventricular diastolic function is normal. Right Ventricle The right ventricle is normal size. The right ventricular systolic function is normal. Atria The left atrium size is normal. The right atrium size is normal. Aortic Valve The aortic valve is mildly thickened but opens well. No aortic regurgitation is present. There is no aortic valvular stenosis. Mitral Valve The mitral valve is normal in structure and function. There is no mitral valve regurgitation noted. T here is no mitral valve stenosis. Tricuspid Valve The tricuspid valve is normal in structure and function. There is no tricuspid valve regurgitation no neeta. Pulmonic Valve The pulmonary valve is normal in structure and function. There is trace pulmonic valvular regurgitati on. Great Vessels The aortic root is normal in size. The IVC is normal in size and collapses >50% with inspiration. Pericardium No pericardial effusion. Conclusion LVEF is 60-65%. There is normal LV segmental wall motion. There is normal left ventricular wall thickness. The aortic valve is mildly thickened but opens well.
[2024-06-23 20:00] VITALS: BP 127/72; PULSE 78; RESP 18; TEMP 99.9; O2SAT 95
[2024-06-23] MEDS: FAMOTIDINE 20MG TAB PO SCH (20:03)
--- NOTE | 2024-06-23 22:20 | PN ---
PROGRESS NOTE PROGRESS NOTE DATE OF PROGRESS NOTE: 06/23/24 SUBJECTIVE: The patient feels better VITAL SIGNS Vital Signs Date Time Temp Pulse Resp B/P (MAP) Pulse Ox O2 Delivery O2 Flow Rate FiO2 06/23/24 16:00 98.1 86 17 146/89 95 Room Air 21 06/22/24 20:00 0 PHYSICAL EXAM: Initial Vital Sign VS Vital Signs Date Time Temp Pulse Resp B/P (MAP) Pulse Ox O2 Delivery O2 Flow Rate FiO2 06/22/24 13:32 98.1 84 20 151/65 97 Room Air 0 06/22/24 13:49 21 Physical Exam Dictation VITAL SIGNS: note is made of triage vital signs CONSTITUTIONAL: This is a comfortable patient who is awake, alert, and appropriately interactive. HEAD: Normocephalic, Atraumatic. EYES: Periorbital areas with no swelling, redness, or edema. Lids and lashes are normal. Conjunctival injection is absent. Sclera anicteric. Pupils equal, round, reactive to light. Extraocular movements are intact but with direct visual field confrontation the patient reports that she has difficulty seeing movement or my fingers in the left visual field. ENT: No nasal discharge noted. Posterior pharynx is without exudate, redness, swelling, masses, or evidence of obstruction. Uvula midline. Mucous membranes moist. NECK: Trachea midline, no masses palpated, and no cervical lymphadenopathy. No swelling. Supple, full range of motion without nuchal rigidity. No vertebral point tenderness. No meningismus. CHEST/AXILLA: Normal chest wall appearance and motion. No tenderness. No crepitus. CV: Normal rate, regular rhythm. No murmur. No edema. RESPIRATORY:Respiratory rate is normal. Bilateral equal breath sounds with good airflow. Normal breath sounds are noted. No rales, rhonchi or wheezes noted. No increased work of breathing, no retractions. ABDOMEN: Inspection normal. No distention is appreciated. Bowel sounds are normal. No mass or organomegaly is appreciated. There is no tenderness. No rebound. No rigidity. No voluntary or involuntary guarding. BACK: Inspection is normal. No midline tenderness is appreciated. The patient appears comfortable when moving. : No CVA tenderness or bladder tenderness. SKIN: Warm, dry, with normal turgor. Capillary refill less than 3 seconds. No rmal color.No rash. No cellulitis or abscess. No evidence of acute injury. MS/Extremity: There is no calf tenderness. Baseline range of motion is noted in all 4 extremities. There are no deformities. NEURO: Awake and alert, lucid. Facies symmetric and speech is clear. Motor strength 5/5 in all extremities. There was mild pronator drift on the left and the patient reports decreased light touch in the left face and arm She is ambulatory without difficulty and can raise both arms up over her head, clap, and perform a normal [id number]-gr-vryk bilaterally. PSYCH: Patient is appropriately attentive and cooperative without evidence of logan llucination. LABORATORY: Laboratory Result(s) Test 06/23/24 04:44 White Blood Count 3.2 K/uL (4.8-10.8) Red Blood Count 4.64 MIL/uL (4.00-5.50) Hemoglobin 12.6 g/dL (12.0-16.0) Hematocrit 39.6 % (36-48) Mean Corpuscular Volume 85.3 fL (79-99) Mean Corpuscular Hemoglobin 27.2 pg (27.0-33.0) Mean Corpuscular Hemoglobin Concent 31.8 g/dL (32.0-36.0) Red Cell Distribution Width 20.1 % (11.0-15.5) Platelet Count 263 K/uL (130-400) Mean Platelet Volume 10.5 fL (7.5-10.5) Nucleated Red Blood Cells 0.0 % (0.0-0.19) Sodium Level 141 mmol/L (136-145) Potassium Level 3.6 mmol/L (3.5-5.1) Chloride Level 108 mmol/L (101-111) Carbon Dioxide Level 26 mmol/L (21-32) Blood Urea Nitrogen 11 mg/dL (7-18) Creatinine 0.7 mg/dL (0.5-1.0) Glomerular Filtration Rate Calc 103 mL/min (>90) Random Glucose 94 mg/dL (70-105) Hemoglobin A1c 5.5 % (4.0-6.0) Estimated Average Glucose (eAG) 111 mg/dL (70-126) Total Calcium 8.9 mg/dL (8.5-10.1) Total Bilirubin 0.3 mg/dL (0.2-1.0) Aspartate Amino Transf (AST/SGOT) 23 U/L (10-37) Alanine Aminotransferase (ALT/SGPT) 23 U/L (12-78) Alkaline Phosphatase 136 U/L (50-136) Total Protein 7.8 g/dL (6.0-8.3) Albumin 3.2 g/dL (3.5-5.0) INPATIENT MEDS: Current Medications Medications Dose Ordered Sig/Cheryl Start Time Stop Time Status Last Admin Hydralazine HCl 25 mg Q4H4 PRN 06/22/24 15:30 07/22/24 15:29 06/22/24 16:26 Aspirin 325 mg DAILY 06/23/24 09:00 07/23/24 08:59 06/23/24 10:37 Sodium Chloride 1,000 ml @ 75 mls/hr [id number] 06/22/24 15:30 07/22/24 15:29 06/23/24 19:41 Acetaminophen 500 mg Q6H PRN 06/22/24 16:00 07/22/24 15:59 06/23/24 06:33 Hydromorphone HCl 0.5 mg Q4H PRN 06/22/24 16:00 06/27/24 15:59 Levothyroxine Sodium 125 mcg SYN 06/23/24 06:30 07/23/24 06:29 06/23/24 06:33 Folic Acid 1 mg DAILY 06/23/24 09:00 07/23/24 08:59 06/23/24 10:37 Clopidogrel Bisulfate 75 mg DAILY 06/24/24 09:00 07/24/24 08:59 Atorvastatin Calcium 40 mg DAILY 06/24/24 09:00 07/24/24 08:59 Famotidine 20 mg BID 06/23/24 21:00 07/23/24 20:59 PROBLEM LIST: (1) CVA (cerebral vascular accident) ICD Code: I63.9 - Cerebral infarction, unspecified (2) Visual loss, left eye ICD Code: H54.62 - Unqualified visual loss, left eye, normal vision right eye (3) Diplopia ICD Code: H53.2 - Diplopia (4) Headache ICD Code: R51.9 - Headache, unspecified PLAN: Occipital embolic stroke on Eliquis medications which to aspirin and Plavix given the size of the stroke Eliquis has been discontinued Anxiety supportive treatment eye pain being followed by ophthalmology follow up on Neurology input SOFÍA DUMONT MD Jun 23, 2024 22:20
[2024-06-24] VITALS (8 sets, daily range): BP systolic 112–149; BP diastolic 75–99; PULSE 75–105; RESP 18–20; TEMP 98.7–100.7; O2SAT 95–100
[2024-06-24 04:33] LABS: HDL CHOLESTEROL 52 mg/dL (35-85); LDL DIRECT 78 mg/dL (0-99); TRIGLYCERIDES 69 mg/dL (30-200)
[2024-06-24 05:57] LABS: CHOLESTEROL 130 mg/dL (<200)
[2024-06-24] MEDS: cloPIDOgrel 75MG TAB PO SCH (09:52)
[2024-06-24] MEDS: atorVAStatin 40 MG TABLET PO SCH (09:52)
--- NOTE | 2024-06-24 13:11 | CONS ---
HEMATOLOGY CONSULTATION REASON FOR CONSULTATION: Previous history of PE and DVT. HISTORY OF PRESENT ILLNESS: This is a 53-year-old female patient, who was admitted to the hospital with concerns of left-sided CVA after having complaints of left upper extremity tingling and weakness associated with dizziness. On the brain MRI, there is multiple brain ischemic lesions, possible hemorrhagic. She has previous history of DVT and PE 2 years ago. She took Eliquis for 6 months and then discontinued. She denies any recent procedures or trauma, falls. No previous history of stroke or heart problems. PAST MEDICAL HISTORY: Pertinent for diabetes mellitus, hypertension, hypercholesterolemia, PE, DVT, status post cholecystectomy, status post craniotomy and meningioma resection with a persistent one. 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 No history of smoking or alcohol intake. FAMILY HISTORY: Noncontributory. MEDICATIONS: Per the chart. ALLERGIES: None. REVIEW OF SYSTEMS: Per history of present illness. PHYSICAL EXAMINATION: GENERAL: Middle-aged female patient, alert and oriented x 3, no acute distress. VITAL SIGNS: Stable, afebrile. HEART: Regular and rhythmic. LUNGS: Clear to auscultation bilaterally. ABDOMEN: Soft, no tenderness, no organomegaly. Bowel sounds present. EXTREMITIES: No pedal edema. No calf tenderness. LABORATORY DATA: Sodium 141, potassium 3.6, BUN 11, creatinine 0.7. LFTs within normal limits. WBC 3.2, hemoglobin 12.6, platelet count 263. ASSESSMENT: * Kkrcm-hc-[id number] CVA. * History of deep venous thrombosis and pulmonary embolism. * History of meningioma, status post craniotomy and tumor resection. PLAN: The patient remains stable. She was started on baby aspirin and Plavix as per neurology. She was not on Eliquis and this was discontinued after 6 months from the initial treatment. From our point of view, we will evaluate for any hypercoagulable disorders. Follow echocardiogram results, need to start back on Eliquis, will be up to neurology. I will follow results and have further discussion. TID: [id number] RECEIPT: [id number]
--- NOTE | 2024-06-24 14:35 | NUR ---
Nutrition consult per stroke Reviewed labs, notes, and medications. NPO since admin, b-complex, IV fluid, A1C WNL, lipid WNL per chart review. Pt with 75-100%, wt via standing scale, last BM 06/23/24, no edema, well nourished , no wounds per nursing. Advance diet when medically feasible to HH diet. Pt would be high risk of PCM per NPO status. Recommendations: -Provide HH diet when medically feasible -Monitor PO intake -Encourage PO intake as able -Monitor BM -If no BM >3 days consider stool softener -Consider probiotics QD per diarrhea -Monitor electrolytes -Replenish electrolytes per protocol -Monitor wts -Reweigh as able -Order Vit D, vit b-12 labs to rule out deficiencies -Provide b-complex QD -Recommend Pt to follow up with PCP -Monitor goals of care RD to follow + available for consult per protocol Addendum: 06/24/24 at [address] Amended: Links added.
--- NOTE | 2024-06-24 16:30 | NUR ---
SPEECH LANGUAGE EVALUATION COMPLETED: Speech, language, and cognitive linguistic skills are within functional limits. Patient oriented x4, and expressed wants and needs independently with clear speech intelligibility. Patient responded accurately to yes/no questions, naming body parts, naming objects, sentence completion, automatic speech tasks, problem solving, abstract reasoning, generative naming, short term memory recall, and following 1-3 step simple and complex commands. No aphasia, no apraxia to speech, and no anomias present at time of evaluation. Speech therapy not warranted at this time. Patient/family voiced understanding. CONTENT WRITER reviewed results with patient, family, and nurse Jo. All questions answered. Addendum: 06/24/24 at 1728 by MARVIN BAER Amended: Links added.
--- NOTE | 2024-06-24 16:50 | NUR ---
BEDSIDE SWALLOW EVAL COMPLETED. No s/s of aspiration. Recommend regular solids, thin liquids, and whole meds with liquids. Compensatory strategies 1. Sit upright 2. slow oral intake 3. Alt between solids and liquids BEHAVIORAL HEALTH WORKER reviewed results and recommendations with patient,, family, and nurse Jo. BEHAVIORAL HEALTH WORKER educated patient on risk and consequences of aspiration. Speech Therapy not warranted at this time. All questions answered. Addendum: 06/24/24 at 1720 by MARVIN BAER Amended: Links added.
--- NOTE | 2024-06-24 22:33 | PN ---
PROGRESS NOTE PROGRESS NOTE DATE OF PROGRESS NOTE: 06/24/24 SUBJECTIVE: no New complaints VITAL SIGNS Vital Signs Date Time Temp Pulse Resp B/P (MAP) Pulse Ox O2 Delivery O2 Flow Rate FiO2 06/24/24 20:00 100.8 86 18 136/86 95 Room Air 06/24/24 08:00 0 21 PHYSICAL EXAM: Initial Vital Sign VS Vital Signs Date Time Temp Pulse Resp B/P (MAP) Pulse Ox O2 Delivery O2 Flow Rate FiO2 06/22/24 13:32 98.1 84 20 151/65 97 Room Air 0 06/22/24 13:49 21 Physical Exam Dictation VITAL SIGNS: note is made of triage vital signs CONSTITUTIONAL: This is a comfortable patient who is awake, alert, and appropriately interactive. HEAD: Normocephalic, Atraumatic. EYES: Periorbital areas with no swelling, redness, or edema. Lids and lashes are normal. Conjunctival injection is absent. Sclera anicteric. Pupils equal, round, reactive to light. Extraocular movements are intact but with direct visual field confrontation the patient reports that she has difficulty seeing movement or my fingers in the left visual field. ENT: No nasal discharge noted. Posterior pharynx is without exudate, redness, swelling, masses, or evidence of obstruction. Uvula midline. Mucous membranes moist. NECK: Trachea midline, no masses palpated, and no cervical lymphadenopathy. No swelling. Supple, full range of motion without nuchal rigidity. No vertebral point tenderness. No meningismus. CHEST/AXILLA: Normal chest wall appearance and motion. No tenderness. No crepitus. CV: Normal rate, regular rhythm. No murmur. No edema. RESPIRATORY:Respiratory rate is normal. Bilateral equal breath sounds with good airflow. Normal breath sounds are noted. No rales, rhonchi or wheezes noted. No increased work of breathing, no retractions. ABDOMEN: Inspection normal. No distention is appreciated. Bowel sounds are normal. No mass or organomegaly is appreciated. There is no tenderness. No rebound. No rigidity. No voluntary or involuntary guarding. BACK: Inspection is normal. No midline tenderness is appreciated. The patient appears comfortable when moving. : No CVA tenderness or bladder tenderness. SKIN: Warm, dry, with normal turgor. Capillary refill less than 3 seconds. Normal color.No rash. No cellulitis or abscess. No evidence of acute injury. MS/Extremity: There is no calf tenderness. Baseline range of motion is noted in all 4 extremities. There are no deformities. NEURO: Awake and alert, lucid. Facies symmetric and speech is clear. Motor strength 5/5 in all extremities. There was mild pronator drift on the left and the patient reports decreased light touch in the left face and arm She is ambulatory without difficulty and can raise both arms up over her head, clap, and perform a normal mhatgi-ip-[id number] bilaterally. PSYCH: Patient is appropriately attentive and cooperative without evidence of hallucination. LABORATORY: Laboratory Result(s) Test 06/24/24 04:00 06/24/24 13:30 D-Dimer Quantitative (PE/DVT) 826 ng/mL (0-500) Triglycerides Level 69 mg/dL (30-200) Cholesterol Level 130 mg/dL (<200) LDL Cholesterol 78 mg/dL (0-99) HDL Cholesterol 52 mg/dL (35-85) Vitamin B12 Level 511 pg/mL (193-986) Lupus Anticoag PTT Mix/Correction Hexagonal Phospholipid Neutralizat INPATIENT MEDS: Current Medications Medications Dose Ordered Sig/Cheryl Start Time Stop Time Status Last Admin Hydralazine HCl 25 mg Q4H4 PRN 06/22/24 15:30 07/22/24 15:29 06/22/24 16:26 Aspirin 325 mg DAILY 06/23/24 09:00 07/23/24 08:59 06/24/24 09:52 Sodium Chloride 1,000 ml @ 75 mls/hr [id number] 06/22/24 15:30 07/22/24 15:29 06/24/24 09:53 Acetaminophen 500 mg Q6H PRN 06/22/24 16:00 07/22/24 15:59 06/24/24 19:58 Hydromorphone HCl 0.5 mg Q4H PRN 06/22/24 16:00 06/27/24 15:59 Levothyroxine Sodium 125 mcg SYN 06/23/24 06:30 07/23/24 06:29 06/23/24 06:33 Folic Acid 1 mg DAILY 06/23/24 09:00 07/23/24 08:59 06/24/24 09:52 Clopidogrel Bisulfate 75 mg DAILY 06/24/24 09:00 07/24/24 08:59 06/24/24 09:52 Atorvastatin Calcium 40 mg DAILY 06/24/24 09:00 07/24/24 08:59 06/24/24 09:52 Famotidine 20 mg BID 06/23/24 21:00 07/23/24 20:59 06/24/24 19:58 PROBLEM LIST: (1) CVA (cerebral vascular accident) ICD Code: I63.9 - Cerebral infarction, unspecified (2) Visual loss, left eye ICD Code: H54.62 - Unqualified visual loss, left eye, normal vision right eye (3) Diplopia ICD Code: H53.2 - Diplopia (4) Headache ICD Code: R51.9 - Headache, unspecified PLAN: Occipital embolic stroke on Eliquis medications which to aspirin and Plavix given the size of the stroke Eliquis has been discontinued Anxiety supportive treatment eye pain being followed by ophthalmology follow up on Neurology input Hypercoagulable state with elevated D-dimer off Eliquis consult Hematology old history of DVT and PE SOFÍA DUMONT MD Jun 24, 2024 22:33
[2024-06-25 04:00] VITALS: BP 113/66; PULSE 82; RESP 18; TEMP 99.4
[2024-06-25 08:00] VITALS: BP 119/68; PULSE 98; RESP 18; TEMP 98.2
--- NOTE | 2024-06-25 08:38 | NUR ---
NEURO CLEARANCE CLEARED FOR D/C BY DR MURRAY TO CONTINUE ON PLAVIX AND ASA X 90 DAYS; NOT TO START ON ELIQUIS OR XARELTO. NOTIFIED DR DUMONT RE: NEURO RECOMENDATIONS
[2024-06-25 09:22] VITALS: O2SAT 100
--- NOTE | 2024-06-25 09:28 | NUR ---
D/C ORDER SPOKE TO DR DUMONT. OTRDER TO D/C HOME AND F/U IN OFFICE LATER THIS WEEK. CALL IN RX FOR PLAVIX, ASA AND LIPITOR X 90 DAYS
--- NOTE | 2024-06-25 09:51 | NUR ---
CALLED RX TO [facility] SPOKE TO DARSHAN PHARMACIST @ [facility]. RX CALLED IN FOR PLAVIX 75MG PO DAILY, ASA 3254MG PO DAILY AND LIPITOR 40MG PO DAILY X 90 DAYS
--- NOTE | 2024-06-25 10:03 | NUR ---
Disctinued telemetry monitoring as per protocol. No changes in condition.
[2024-06-25] MEDS ORDERED: CLOP-31 PO (10:50)
[2024-06-25] MEDS ORDERED: ASPI-1197 PO (10:51)
[2024-06-25] MEDS ORDERED: ATOR20TA PO (10:51)
--- NOTE | 2024-06-25 11:19 | NUR ---
D/C INSTRUCTIONS D/C INSTRUCTIONS PROVIDED AND ACKNOWLEDGED. IV REMOVED
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
== END 2024-06-25 11:45 | disposition left against medical advice (07) | DRG 45 ==
LOC: EDH 13:28 → EDHIP 13:29 → UNDOADMIN 15:23 → 3AH 16:50
PROVIDERS: ADMIT Internal Medicine; ATTEND Internal Medicine
DX: I63.431 Cerebral infarction due to embolism of right posterior cerebral artery (principal); G81.94 Hemiplegia, unspecified affecting left nondominant side; E11.9 Type 2 diabetes mellitus without complications; M79.7 Fibromyalgia; E78.00 Pure hypercholesterolemia, unspecified; E66.9 Obesity, unspecified; H57.11 Ocular pain, right eye; I10 Essential (primary) hypertension; H54.62 Unqualified visual loss, left eye, normal vision right eye; Z90.49 Acquired absence of other specified parts of digestive tract; Z86.718 Personal history of other venous thrombosis and embolism; Z86.711 Personal history of pulmonary embolism; Z86.011 Personal history of benign neoplasm of the brain; Z79.899 Other long term (current) drug therapy; Z68.34 Body mass index [BMI] 34.0-34.9, adult
CPT/HCPCS: 36415; 70450; 70496; 70498; 70553; 71045; 80048; 80053; 80061; 81003; 81241; 82306; 82550; 82607; 82948; 83036; 84484; 85025; 85027; 85210; 85300; 85303; 85305; 85306; 85378; 85732; 86147; 92522; 92610; 93005; 93306; 99285; G0378; A9575

== ENCOUNTER 2024-12-15 06:15 | Emergency (ER) | payer MEDICAID ==
[~2024-12-15] VITALS: Ht 165.1 cm; Wt 95.3 kg
[~2024-12-15 06:15] MED LIST changes: -APIX5TAB PO; +ASPI-1197 PO; +ATOR20TA PO; +CLOP-31 PO; -GABA300C PO; -LISI10TA24 PO; -METO-408 PO; -OMEP40CA21 PO
--- NOTE | 2024-12-15 06:36 | EKG ---
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
--- NOTE | 2024-12-15 06:58 | ERN ---
General Chief Complaint: Multiple Complaints Stated Complaint: N/V. CHEST PAIN " TIGHTNESS" Time Seen by MD: 06:52 Source: patient History of Present Illness Initial Comments Patient is a 54-year-old female with symptoms of dysphagia. She says when she swallows something it feels like something is getting stuck in her upper chest lower neck and then also down at her gastroesophageal junction. She feels like she can not even get water down sometimes. It is the dysphagia that is contributing to her chest tightness. And also her nausea and vomiting. She has no fevers or chills. She has had occasional difficulty swallowing foods in the past but this is the worst that it has ever been. Timing/Duration: 4-6 hours Allergies: Coded Allergies: diphenhydramine (Verified Allergy, 10/06/13) prochlorperazine edisylate (Verified Allergy, 12/30/12) prochlorperazine maleate (Verified Allergy, 12/30/12) Home Meds Reported Medications Atorvastatin Calcium (Lipitor) 20 Mg Tablet, 40 MG PO DAILY for 90 Days, TAB !!Remember to check dose!! 06/25/24 Aspirin (Aspirin) 81 Mg Tab.chew, 325 MG PO DAILY for 90 Days, TAB.CHEW 06/25/24 Clopidogrel Bisulfate (Plavix) 75 Mg Tablet, 75 MG PO DAILY for 90 Days, TAB 06/25/24 Alprazolam (Xanax) 1 Mg Tablet, 1 MG PO BID, TAB 12/30/22 Levothyroxine Sodium (Synthroid 125 Mcg Tab) 125 Mcg Tablet, 125 MCG PO DAILY, TAB 12/30/22 Folic Acid (Folic Acid) 0.4 Mg Tablet, 1 MG PO DAILY, TAB 12/30/22 Past Medical History Past Medical History: CVA, Fibromyalgia, Hypertension Medical History Other: HIATAL HERNIA Past Surgical History: Cholecystectomy Surgical History Other: BRAIN,NECK, Family History Family History: Negative Social History Social History: Smokers, Lives with family Constitutional: (-) chills, (-) diaphoresis, (-) fever, (-) malaise, (-) we akness, (-) other documentation EENTM: (-) eye pain, (-) blurred vision, (-) tearing, (-) double vision, (-) ear pain, (-) ear discharge, (-) nose pain, (-) nose congestion, (-) throat pain, (-) Throat swelling, (-) mouth pain, (-) tooth pain, (-) mouth swelling, (-) other documentation Respiratory: (-) cough, (-) orthopnea, (-) short of breath, (-) stridor, (-) wheezing, (-) other documentation Cardiovascular: (-) chest pain, (-) edema, (-) palpitations, (-) syncope, (-) dyspnea on exertion, (-) other documentation Gastrointestinal/Abdominal: (+) nausea, (+) vomiting Genitourinary: (-) vaginal discharge, (-) vaginal bleeding, (-) dysuria, (-) frequency, (-) hematuria, (-) pain, (-) other documentation Musculoskeletal: (-) Neck pain, (-) back pain, (-) Flank Pain, (-) joint pain, (-) joint swelling, (-) muscle pain, (-) muscle stiffness, (-) gout, (-) other d ocumentation Skin: (-) laceration, (-) contusion, (-) abrasion, (-) abscess, (-) rash, (-) change in color, (-) change in hair, (-) change in nails, (-) diaphoresis, (-) dryness, (-) other documentation Physical Exam General Appearance: (+) mild distress Orientation: (+) oriented x 3 Head/Face Trauma: No Eye: bilateral eye normal inspection, bilateral eye PERRL, bilateral eye EOMI Ear, Nose, Throat: (+) hearing grossly normal, (+) normal ENT inspection, (+) moist mucous membraine Neck: (+) supple, (+) full range of motion Respiratory: (+) chest non-tender, (+) lungs clear, (+) well ventilated Heart: (+) regular, (+) no gallop Vascular: (+) no edema, (+) normal peripheral pulse Gastrointestinal: (+) soft, (+) bowel sound present, (+) tender Gastrointestinal Comment Patient does have subxiphoid process tenderness. Results Laboratory and Microbiology Lab and Micro Result Laboratory Tests Test 12/15/24 08:00 White Blood Count 2.7 K/uL (4.8-10.8) L Red Blood Count 4.59 MIL/uL (4.00-5.50) Hemoglobin 13.2 g/dL (12.0-16.0) Hematocrit 40.2 % (36-48) Mean Corpuscular Volume 87.6 fL (79-99) Mean Corpuscular Hemoglobin 28.8 pg (27.0-33.0) Mean Corpuscular Hemoglobin Concent 32.8 g/dL (32.0-36.0) Red Cell Distribution Width 14.7 % (11.0-15.5) Platelet Count 279 K/uL (130-400) Mean Platelet Volume 9.8 fL (7.5-10.5) Immature Granulocyte % (Auto) 0.4 % (0-1) Neutrophils (%) (Auto) 49.9 % (40.0-77.0) Lymphocytes (%) (Auto) 35.2 % (21.0-51.0) Monocytes (%) (Auto) 11.2 % (3.0-13.0) Eosinophils (%) (Auto) 2.6 % (0.0-8.0) Basophils (%) (Auto) 0.7 % (0.0-5.0) Neutrophils # (Auto) 1.3 K/uL (1.8-7.7) L Lymphocytes # (Auto) 0.9 K/uL (1.0-4.8) L Monocytes # (Auto) 0.3 K/uL (0.1-1.0) Eosinophils # (Auto) 0.07 K/uL (0.00-0.70) Basophils # (Auto) 0.02 K/uL (0.00-0.20) Absolute Immature Granulocyte (auto 0.01 K/uL (0-1) Segmented Neutrophils % 53 % (40-70) Band Neutrophils % 4 % (0-2) H Lymphocytes % (Manual) 33 % (22-44) Monocytes % (Manual) 8 % (2-9) Eosinophils % (Manual) 2 % (1-6) Nucleated Red Blood Cells 0.0 % (0.0-0.19) Differential Comment MANUAL DIFFERENTIAL White Cell Morphology Comment CONSISTENT W/DIFF Platelet Morphology Comment ADEQUATE Red Blood Cell Morphology ANISO 1+ Sodium Level 142 mmol/L (136-145) Potassium Level 4.0 mmol/L (3.5-5.1) Chloride Level 104 mmol/L (101-111) Carbon Dioxide Level 29 mmol/L (21-32) Blood Urea Nitrogen 13 mg/dL (7-18) Creatinine 0.6 mg/dL (0.5-1.0) Glomerular Filtration Rate Calc 106 mL/min (>90) Random Glucose 98 mg/dL (70-105) Total Calcium 9.3 mg/dL (8.5-10.1) Troponin I High Sensitivity 5 ng/L (4-50) Lipase 38 U/L (16-77) MDM Given the patient's age we will do cardiac workup but also concentrate more on her esophageal symptoms. CBC chemistry panel CT scan thorax and abdomen. Cardiac enzymes EKG. MDM: Differential diagnosis: Rationale: Tests considered and ordered secondary to shared decision making include: Previous outside records reviewed: Old ER visits. Risk of complication and/or morbidity or mortality of patient management: None Medications-Per medication reconciliation Need for hospitalization: Patient does not meet criteria for hospitalization. Need for emergency major/minor surgery: No There are no social concerns with this patient. Prescription drug management Prescriptions will include symptomatic care Patient's prior external medical records from other ER visits were reviewed by me as indicated. Prior testing and results from previous visits were reviewed. Prior tests were taken into account with medical decision making and resource utilization, independent historian/historians were used to obtain complete medical history. I independently interpreted the test that were performed, results were reviewed by me and considered findings on radiology if ordered. Medical management and examination interpretation discussions were had by me with other qualified healthcare professionals as indicated for the patient's care. 54-year-old female handed off at shift change pending dysphagia and chest pain stable repeat exam vital signs stable blood work negative, CT scan of the chest shows hiatal hernia, no signs of strangulation or concern for admission stable for outpatient follow up and workup referred to GI. ED Course Orders Procedure Category Date Status Time 12 Lead Ekg Tracing- EKG 12/15/24 Complete Technical 06:24 Vital Signs Per CPOE 12/15/24 Transmitted Routine 06:37 Saline Lock Iv CPOE 12/15/24 Transmitted 06:37 Cbc With Differential LAB 12/15/24 Complete 06:37 Lipase LAB 12/15/24 Complete 06:37 Troponin I High LAB 12/15/24 Complete Sensitivity 06:37 Chest 1vw RAD 12/15/24 Resulted 06:37 Basic Metabolic Panel LAB 12/15/24 Complete 06:[address] 12/15/24 Resulted W/Contrast 06:53 Mag/Alum/Simeth 30ml PHA 12/15/24 Complete (Maalox Plus 30ml) 08:30 Iohexol (Omnipaque) PHA 12/15/24 Complete 08:27 Manual Differential LAB 12/15/24 Complete 08:00 Current Medications Medications (Trade) Dose Ordered Sig/Cheryl Route PRN Reason Start Time Stop Time Status Last Admin Dose Admin Al Hydroxide/Mg Hydroxide (MAALox PLUS 30ML) 30 ml ONCE ONCE PO 12/15/24 08:30 12/15/24 08:31 DC 12/15/24 08:33 Iohexol (Omnipaque) 75 ml STK-MED ONCE IV 12/15/24 08:27 12/15/24 08:27 DC Vital Signs Date Time Temp Pulse Resp B/P (MAP) Pulse Ox O2 Delivery O2 Flow Rate FiO2 12/15/24 08:34 92 14 135/84 95 Room Air* 0 21 12/15/24 07:03 98.2 75 18 164/98 98 Room Air* 0 21 12/15/24 06:16 98.2 82 18 160/103 95 Room Air DX & DISP Disposition: Discharge Departure Impression: Primary Impression: Chest pain Additional Impression: Hiatal hernia Condition: Stable Scripts Pantoprazole Sodium (Protonix) 20 Mg Tablet. 1 TAB PO DAILY for 30 Days, #30 TAB 0 Refills Prov: NUSRAT TRIPP MD 12/15/24 Referrals: SOFÍA DUMONT MD (PCP) KEL DOHERTY MD Time of Disposition: 09:53 SOURAV SHERMAN MD Dec 15, 2024 06:58 NUSRAT TRIPP MD Dec 15, 2024 09:53
[2024-12-15 07:03] VITALS: TEMP 98.2
[2024-12-15 08:09] LABS: BASOPHILS # (AUTO) 0.02 K/uL (0.00-0.20); BASOPHILS % (AUTO) 0.7 % (0.0-5.0); EOSINOPHILS # (AUTO) 0.07 K/uL (0.00-0.70); EOSINOPHILS % (AUTO) 2.6 % (0.0-8.0); HEMATOCRIT 40.2 % (36-48); IMMATURE GRANULOCYTE ABSOLUTE 0.01 K/uL (0-1); LYMPHOCYTES # (AUTO) 0.9 K/uL (1.0-4.8); LYMPHOCYTES % (AUTO) 35.2 % (21.0-51.0); MEAN CORPUSCULAR HEMOGLOBIN 28.8 pg (27.0-33.0); MEAN CORPUSCULAR HGB CONC 32.8 g/dL (32.0-36.0); MEAN CORPUSCULAR VOLUME 87.6 fL (79-99); MONOCYTES # (AUTO) 0.3 K/uL (0.1-1.0); MONOCYTES % (AUTO) 11.2 % (3.0-13.0); NEUTROPHILS # (AUTO) 1.3 K/uL (1.8-7.7); NEUTROPHILS % (AUTO) 49.9 % (40.0-77.0); PLATELET COUNT (AUTO) 279 K/uL (130-400); RED BLOOD CELL COUNT(AUTO) 4.59 MIL/uL (4.00-5.50); RED CELL DISTRIBUTION WIDTH 14.7 % (11.0-15.5); WHITE BLOOD COUNT (AUTO) 2.7 K/uL (4.8-10.8)
[2024-12-15 08:17] LABS: CREATININE 0.6 mg/dL (0.5-1.0)
[2024-12-15] MEDS ORDERED: IOHEXOL-350 75 ML VIAL IV ONE (08:27)
--- NOTE | 2024-12-15 08:27 | HMCIMG ---
Exam Type: CHEST 1VW Clinical Information: CHEST PAIN Comparison: None Findings: The lungs are clear of infiltrates. The heart is normal in size. The bony and soft tissue structures of the chest are unremarkable. Impression: Clear lungs.
[2024-12-15] MEDS: MAG/ALUM/SIMETH 30 ML UDCUP PO ONE (08:33)
--- NOTE | 2024-12-15 09:24 | HMCIMG ---
CT OF THE CHEST and abdomen WITH CONTRAST History: Comparison: PROTOCOL: Examination is done at 2.5 millimeter volumetric acquisition after contrast administration with Isovue 370, 100 cc IV, without complications. Photography is done at 5 millimeter thick intervals for the thorax. FINDINGS: The thyroid gland is unremarkable. The airway is preserved. The bony and soft tissue structures of the chest wall are unremarkable. The aorta is unremarkable. No mediastinal lymphadenopathy is seen. The lung windows demonstrate no worrisome pulmonary nodules, masses or infiltrates. There is no evidence of pulmonary embolism. Aorta and coronary arteries appear unremarkable. No evidence of nephro or ureterolithiasis is found. No hydronephrosis or ureteral dilatation is seen. The lung bases are clear. The entire esophagus is distended. There is a moderate size hiatal hernia and there is fluid within the esophagus consistent with gastroesophageal reflux to the level of the thoracic inlet. The spleen is unremarkable. It is not enlarged. The pancreas shows normal anatomy. It is not fatty replaced. It shows no lesions. The pancreatic duct is not dilated. The gallbladder is surgically absent. The adrenal glands are unremarkable. There is no enlargement. No lesions are noted. The liver is unremarkable. It shows no focal masses. The visualized segments of large and small bowel appear unremarkable. The bony and vascular structures are unremarkable for the patient's age. Impression: Moderate size hiatal hernia and significant gastroesophageal reflux to the thoracic inlet.
[2024-12-15 09:41] LABS: BAND NEUTROPHILS % (MANUAL) 4 % (0-2); EOSINOPHILS % (MANUAL) 2 % (1-6); LYMPHOCYTES % (MANUAL) 33 % (22-44); MAN.DIFF COMMENT-IMPRESSION MANUAL DIFFERENTIAL; MONOCYTES % (MANUAL) 8 % (2-9); PLATELET MORPHOLOGY COMMENT ADEQUATE; SEGMENTED NEUTROPHILS % 53 % (40-70); TOTAL CELLS COUNTED 100
[2024-12-15 09:42] LABS: WBC MORPHOLOGY CONSISTENT W/DIFF
[2024-12-15 09:48] VITALS: BP 144/90; PULSE 72; RESP 18; O2SAT 97
[2024-12-15] MEDS ORDERED: PANT20TA PO (09:53)
== END 2024-12-15 10:15 | disposition home or self-care (01) ==
LOC: EDH 06:15
DX: R07.89 Other chest pain (principal); K44.9 Diaphragmatic hernia without obstruction or gangrene; F17.200 Nicotine dependence, unspecified, uncomplicated; I10 Essential (primary) hypertension; M79.7 Fibromyalgia; Z79.02 Long term (current) use of antithrombotics/antiplatelets; Z79.82 Long term (current) use of aspirin; Z79.890 Hormone replacement therapy; Z79.899 Other long term (current) drug therapy; Z86.73 Personal history of transient ischemic attack (TIA), and cerebral infarction without residual deficits; Z90.49 Acquired absence of other specified parts of digestive tract
CPT/HCPCS: 99285; 74160; 71045; 84484; 80048; 83690; 85025; 36415; 71260; 93005; Q9967